=== PATIENT | male | born 1975 | race Caucasian/White ===

== ENCOUNTER 2018-12-20 14:49 | Outpatient (CLI) | payer OTHER ==
--- NOTE | 2018-12-20 15:31 | RAD ---
EXAM: RIGHT KNEE FOUR VIEWS: 12/20/18 HISTORY: Right knee anterior pain. FINDINGS/IMPRESSION: Mild degenerative changes. No fracture, dislocation, or other acute process. POS: C
== END 2018-12-20 14:50 | disposition home or self-care (01) ==
LOC: RAD 14:49
PROVIDERS: ATTEND Physician Assistant
DX: M25.561 Pain in right knee (principal); M17.11 Unilateral primary osteoarthritis, right knee